=== PATIENT | male | born 1955 | race African-American/Black ===

== ENCOUNTER 2016-08-31 18:53 | Emergency (ER) | payer MEDICAID, OTHER ==
[~2016-08-31] VITALS: Ht 180.3 cm; Wt 73.0 kg
[~2016-08-31 18:53] MED LIST: LEVO25TA9 PO; LISI-661 PO; RISP1 PO; [UNRECOGNIZED DRUG - CODE] TD
[2016-08-31 19:17] LABS: GLUCOSE COMMENT 1 Doctor Notified; GLUCOSE,POINT OF CARE 114 MG/DL (70-110)
[2016-08-31 19:59] LABS: BASOPHILS % (AUTO) 0.8 % (0.0-2.0); EOSINOPHILS % (AUTO) 2.7 % (1.0-6.0); HEMATOCRIT 33.5 % (41-53); HEMOGLOBIN 10.9 g/dL (13.5-17.5); LYMPHOCYTES # (AUTO) 1.1 K/uL (1.0-4.8); LYMPHOCYTES % (AUTO) 11.7 % (22.0-44.0); MEAN CORPUSCULAR HEMOGLOBIN 31.9 pg (26.0-34.0); MEAN CORPUSCULAR HGB CONC 32.5 G/dL (31.0-37.0); MEAN CORPUSCULAR VOLUME 98 fL (80-100); MONOCYTES # (AUTO) 0.8 K/uL (0.1-1.0); MONOCYTES % (AUTO) 8.6 % (2.0-9.0); NEUTROPHILS # (AUTO) 7.4 K/uL (1.8-7.7); NEUTROPHILS % (AUTO) 76.2 % (40.0-70.0); RED BLOOD CELL COUNT(AUTO) 3.41 MIL/uL (4.50-5.90); RED CELL DISTRIBUTION WIDTH 19.2 % (11.5-14.5); WHITE BLOOD COUNT (AUTO) 9.7 K/uL (4.5-11.0)
[2016-08-31 20:07] LABS: ANION GAP 12 mmol/L (8-16); CALCIUM, TOTAL 8.5 mg/dL (8.8-10.5); CARBON DIOXIDE 27 mmol/L (22-29); CHLORIDE 104 mmol/L (98-107); CREATININE 0.65 mg/dL (0.60-1.30); GLOMERULAR FILTR. RATE CALC > 60 mL/min (>60); POTASSIUM 3.5 mmol/L (3.5-5.1); SODIUM SERUM 143 mmol/L (136-145); UREA NITROGEN, BLOOD 11 mg/dL (7-18)
[2016-08-31 20:13] LABS: ALANINE AMINOTRANSFERASE 55 U/L (12-78); ALBUMIN 3.4 g/dL (3.4-5.0); ASPARTATE AMINOTRANSFERASE 86 U/L (15-37); BILIRUBIN,TOTAL 0.5 mg/dL (0.1-1.0); TOTAL PROTEIN, SERUM 7.4 g/dL (6.4-8.2)
[2016-08-31 20:32] LABS: PLATELET COUNT (AUTO) 145 K/uL (150-450); RBC MORPHOLOGY COMMENT ABNORMAL RBC MORPH
[2016-09-01 02:30] VITALS: BP 119/68
== END 2016-09-01 03:00 | disposition home or self-care (01) ==
LOC: EMS 18:54
DX: F10.229 Alcohol dependence with intoxication, unspecified (principal); E11.9 Type 2 diabetes mellitus without complications; F17.210 Nicotine dependence, cigarettes, uncomplicated; Y90.8 Blood alcohol level of 240 mg/100 ml or more; Z91.013 Allergy to seafood
CPT/HCPCS: 36415; 71010; 80053; 82962; 85025; 99285; G0480

== ENCOUNTER 2019-06-13 06:36 | Emergency (ER) | payer MEDICAID, OTHER ==
[~2019-06-13] VITALS: Ht 172.7 cm; Wt 72.7 kg
[2019-06-13 07:23] LABS: GLUCOSE,POINT OF CARE 102 MG/DL (70-110)
[2019-06-13 07:44] LABS: BASOPHILS % (AUTO) 1.1 % (0.0-2.0); HEMOGLOBIN 11.8 g/dL (13.5-17.5); LYMPHOCYTES # (AUTO) 1.1 K/uL (1.0-4.8); LYMPHOCYTES % (AUTO) 12.7 % (22.0-44.0); MEAN CORPUSCULAR HEMOGLOBIN 33.2 pg (26.0-34.0); MEAN CORPUSCULAR HGB CONC 33.8 G/dL (31.0-37.0); MEAN CORPUSCULAR VOLUME 98 fL (80-100); MONOCYTES # (AUTO) 0.8 K/uL (0.1-1.0); MONOCYTES % (AUTO) 9.3 % (2.0-9.0); NEUTROPHILS # (AUTO) 3.8 K/uL (1.8-7.7); PLATELET COUNT (AUTO) 273 K/uL (150-450); RED BLOOD CELL COUNT(AUTO) 3.57 MIL/uL (4.50-5.90); RED CELL DISTRIBUTION WIDTH 17.3 % (11.5-14.5)
[2019-06-13 07:47] LABS: EOSINOPHILS % (AUTO) 32.9 % (1.0-6.0)
[2019-06-13 07:52] LABS: ANION GAP 11 mmol/L (8-16); CARBON DIOXIDE 26 mmol/L (22-29); CHLORIDE 106 mmol/L (98-107); CREATININE 0.76 mg/dL (0.60-1.30); GLOMERULAR FILTR. RATE CALC > 60 mL/min (>60); GLUCOSE,RANDOM 88 mg/dL (70-110); POTASSIUM 3.6 mmol/L (3.5-5.1); SODIUM SERUM 143 mmol/L (136-145); UREA NITROGEN, BLOOD 21 mg/dL (7-18)
[2019-06-13 11:10] VITALS: BP 144/85
== END 2019-06-13 11:57 | disposition home or self-care (01) ==
LOC: EMS 06:36
DX: F10.229 Alcohol dependence with intoxication, unspecified (principal); R00.2 Palpitations; M25.562 Pain in left knee; M25.561 Pain in right knee; E11.9 Type 2 diabetes mellitus without complications; I10 Essential (primary) hypertension; F17.210 Nicotine dependence, cigarettes, uncomplicated; Z59.0 Homelessness; Z91.013 Allergy to seafood; Z79.899 Other long term (current) drug therapy; Y90.8 Blood alcohol level of 240 mg/100 ml or more
CPT/HCPCS: 36415; 80048; 82962; 85025; 93005; 99285; G0480

== ENCOUNTER 2020-04-19 21:45 | Emergency (ER) | payer MEDICAID ==
[~2020-04-19] VITALS: Ht 185.4 cm; Wt 90.9 kg
[2020-04-19 23:17] VITALS: BP 140/117
[2020-04-20 00:33] LABS: EOSINOPHILS % (AUTO) 13.2 % (1.0-6.0); HEMATOCRIT 30.6 % (41-53); HEMOGLOBIN 9.8 g/dL (13.5-17.5); LYMPHOCYTES # (AUTO) 1.2 K/uL (1.0-4.8); LYMPHOCYTES % (AUTO) 29.5 % (22.0-44.0); MEAN CORPUSCULAR VOLUME 91 fL (80-100); MONOCYTES # (AUTO) 0.6 K/uL (0.1-1.0); MONOCYTES % (AUTO) 13.8 % (2.0-9.0); NEUTROPHILS # (AUTO) 1.7 K/uL (1.8-7.7); NEUTROPHILS % (AUTO) 40.5 % (40.0-70.0); PLATELET COUNT (AUTO) 219 K/uL (150-450); RED BLOOD CELL COUNT(AUTO) 3.38 MIL/uL (4.50-5.90); RED CELL DISTRIBUTION WIDTH 22.3 % (11.5-14.5)
[2020-04-20 00:56] LABS: ANION GAP 12 mmol/L (8-16); CARBON DIOXIDE 26 mmol/L (22-29); CHLORIDE 104 mmol/L (98-107); CREATININE 1.08 mg/dL (0.60-1.30); GLOMERULAR FILTR. RATE CALC > 60 mL/min (>60); GLUCOSE,RANDOM 148 mg/dL (70-110); POTASSIUM 3.4 mmol/L (3.5-5.1); SODIUM SERUM 142 mmol/L (136-145); UREA NITROGEN, BLOOD 17 mg/dL (7-18)
[2020-04-20 01:01] LABS: ALANINE AMINOTRANSFERASE 29 U/L (12-78); ALBUMIN 3.4 g/dL (3.4-5.0); ALKALINE PHOSPHATASE 74 U/L (46-116); ASPARTATE AMINOTRANSFERASE 60 U/L (15-37); BILIRUBIN,TOTAL 0.2 mg/dL (0.1-1.0); TOTAL PROTEIN, SERUM 7.4 g/dL (6.4-8.2)
== END 2020-04-20 05:07 | disposition home or self-care (01) ==
LOC: EMS 21:46
DX: F10.129 Alcohol abuse with intoxication, unspecified (principal); E11.9 Type 2 diabetes mellitus without complications; I10 Essential (primary) hypertension; F17.210 Nicotine dependence, cigarettes, uncomplicated; Z91.013 Allergy to seafood; Y90.8 Blood alcohol level of 240 mg/100 ml or more
CPT/HCPCS: 36415; 80053; 85025; 99283; G0480